=== PATIENT | female | born 1955 | race Caucasian/White ===

== ENCOUNTER 2017-01-22 21:13 | Emergency (ER) | payer BC, OTHER ==
--- NOTE | 2017-01-22 23:12 | ED ORDER SUMMARY ---
..... Patient: GIANNI NORMAN OrderSheet [facility] VisitID: [id number] [address] [place] [address] 61y, F Registration Date/Time: 01/22/2017 ORDER SHEET Weight: 125.0 kg Allergies: Codeine, Cillins GENERAL ORDERS: Forearm Right Urgent (22:38 01/22/2017 Connie Salguero verbal order read back to Inez Acosta) ([facility] 22:41 [facility] Tech) (22:55 Glenna) MEDICATION ORDERS: IV FLUIDS: ORDER SHEET NOTES: [Electronically signed by Diego Blanco R.N. (01:51 01/23/2017)] [Electronically signed by Jose Chisholm Dr. (10:17 01/23/2017)] [Electronically locked/signed by Diego Blanco R.N. (01:51 01/23/2017)]
--- NOTE | 2017-01-22 23:12 | ED ORDER SUMMARY ---
..... Patient: GIANNI NORMAN OrderSheet [facility] VisitID: [id number] [address] [place] [address] 61y, F Registration Date/Time: 01/22/2017 ORDER SHEET Weight: 125.0 kg Allergies: Codeine, Cillins GENERAL ORDERS: Forearm Right Urgent (22:38 01/22/2017 Connie Salguero verbal order read back to Inez Acosta) ([facility] 22:41 [facility] Tech) (22:55 Glenna) MEDICATION ORDERS: IV FLUIDS: ORDER SHEET NOTES: [Electronically signed by Diego Blanco R.N. (01:51 01/23/2017)] [Electronically signed by Jose Chisholm Dr. (10:17 01/23/2017)] [Electronically locked/signed by Diego Blanco R.N. (01:51 01/23/2017)]
--- NOTE | 2017-01-22 23:12 | ED NURSING NOTES ---
Clinical Report - Nurses [facility] [address] [place] [address] 01/22/2017 21:17 Patient: GIANNI NORMAN TRIAGE Triage time 2120. Acuity: LEVEL 3. Chief Complaint: INJURY TO THE RIGHT FOREARM. Alert. ALEXANDRE COMA SCORE: [place] Coma Scale: 15- eyes open spontaneously (4); best verbal response- oriented x 4 (5); best motor response- obeys commands (6). --00:17 Diego Blanco R.N. 00:03 01/23/17. BP: 158/74. HR: 66. RR: 16. O2 saturation: 99% on room air. Temp: 98.6 F. Pain level now: 610. Additional comments: R forearm pain. --00:17 Diego Blanco R.N. Weight: 125 kg. Height/Length: 65 inches. BMI: 45.9. --21:40 Diego Blanco R.N. Medications Hydrochlorothiazide Oral. --23:40 Diego Blanco R.N. Amlodipine Besy-Benazepril HCl Oral. --23:42 Diego Blanco R.N. Atenolol Oral, daily. --23:42 Diego Blanco R.N. The following entry was struck by Diego Blanco R.N., 23:38 (01/22/17) Reason - wrong patient. <<STRICKEN ENTRY-- Sertraline HCl Oral 150 mg, daily. --21:45 Diego Blanco R.N. --END STRIKE>> The following entry was struck by Diego Blanco R.N., 23:38 (01/22/17) Reason - wrong patient. <<STRICKEN ENTRY-- Methadone HCl Oral 110 mg, daily. --21:46 Diego Blanco R.N. --END STRIKE>> The following entry was struck by Diego Blanco R.N., 23:38 (01/22/17) Reason - wrong patient. <<STRICKEN ENTRY-- Levothyroxine Sodium Oral 150 mcg, daily. --21:31 Diego Blanco R.N. --END STRIKE>> The following entry was struck by Diego Blanco R.N., 23:38 (01/22/17) Reason - wrong patient. <<STRICKEN ENTRY-- LamoTRIgine ER Oral (Tablet Extended Release 24 Hour 200 mg) 1 tablet, daily. --21:44 Diego Blanco R.N. --END STRIKE>> The following entry was struck and corrected by Diego Blanco R.N., 21:46 (01/22/17) Reason for correction - other(correction). <<STRICKEN ENTRY-- LamoTRIgine ER Oral (Tablet Extended Release 24 Hour 200 mg) 1 tablet, daily. --21:44 Diego Blanco R.N. --END STRIKE>>. Medication/allergy information source: the patient. --00:17 Diego Blanco R.N. Allergies Codeine. Definite Moderate (Hallucinations) --23:40 Diego Blanco R.N. Cillins. Definite Moderate(hives, itching) --23:41 Diego Blanco R.N. The following entry was struck by Diego Blanco R.N., 23:39 (01/22/17) Reason - wrong patient. <<STRICKEN ENTRY-- Sulfa Antibiotics. --21:43 Diego Blanco R.N. --END STRIKE>> The following entry was struck by Diego Blanco R.N., 23:38 (01/22/17) Reason - wrong patient. <<STRICKEN ENTRY-- Compazine. --21:43 Diego Blanco R.N. --END STRIKE>> The following entry was struck by Diego Blanco R.N., 23:38 (01/22/17) Reason - wrong patient. <<[facility]-- Ceclor. --21:43 Diego Blanco R.N. --END STRIKE>>. History Arrived by private vehicle. Historian: patient. Unaccompanied. ( (R) forearm pain after having a GLF. Present with a larger lump (hematoma ) on the lateral side of her right forearm.). This occurred just prior to arrival. Occurred at home. Mechanism of injury: fell. ( (R) forearm pain). Treatment SERVICER TRAVEL TRAILERS: None. PAST MEDICAL HX: Hypertension. Heart disease. Tetanus status: unknown. Immunizations: status is unknown. The patient has had a hysterectomy. SOCIAL HX: Never smoker. No alcohol use or drug use. No infectious disease exposure. ABUSE ASSESSMENT: No report of abuse. FALL RISK ASSESSMENT: Fall risk assessment completed. No fall risk identified. NUTRITIONAL RISK ASSESSMENT: The nutritional risk assessment revealed no deficiencies. FUNCTIONAL ASSESSMENT: Functional assessment: no impairments noted. LEARNING NEEDS ASSESSMENT: The learning needs assessment revealed no barriers. --00:17 Diego Blanco R.N. PROBLEMS: Coronary Artery Disease. --23:48 Diego Blanco R.N. Uterine Cancer. --00:09 Diego Blanco R.N. The following entry was modified by Diego Blanco R.N., 23:48 Reason - wrong patient <<STRICKEN ENTRY-- Hypothyroidism. --23:46 Diego Blanco R.N. --END STRIKE>> The following entry was modified by Diego Blanco R.N., 00:09 <<STRICKEN ENTRY-- Hypertension. --23:47 Diego Blanco R.N. --END STRIKE>>. ADDITIONAL SURGERIES: Hysterectomy. --23:48 Diego Blanco R.N. The following entry was struck by Diego Blanco R.N., 23:48 <<STRICKEN ENTRY-- Adenoidectomy. --21:33 Diego Blanco R.N. --END STRIKE>> The following entry was struck by Diego Blanco R.N., 23:48 <<STRICKEN ENTRY-- Back Surgery. --21:33 Diego Blanco R.N. --END STRIKE>> The following entry was struck by Diego Blanco R.N., 23:48 <<STRICKEN ENTRY-- Hasimoto's thyroid. --21:37 Diego Blanco R.N. --END STRIKE>> The following entry was struck by Diego Blanco R.N., 23:48 <<STRICKEN ENTRY-- Sinus Surgery. --21:33 Diego Blnaco R.N. --END STRIKE>> The following entry was struck by Diego Blanco R.N., 23:48 <<ERICKA ENTRY-- Tonsillectomy. --21:33 Diego Blanco R.N. --END STRIKE>>. Interventions ID band on patient. To treatment room. --00:17 Diego Blanco R.N. PHYSICAL ASSESSMENT <<ERICKA ENTRY-- Ambulatory to room. GENERAL / NEURO / PSYCH: Alert. Oriented X 4. HEENT: Mucous membranes are pink. CVS: Cardiac rhythm: sinus tachycardia. Capillary refill less than 2 seconds. Pulses within normal limits. GI / : ( slightly nausea). SKIN: Skin is intact, warm and dry. No skin rash. --21:55 Diego Blanco R.N. --END STRIKE>> Correction --00:17 Diego Blanco R.N. 21:45. Ambulatory to room. GENERAL / NEURO / PSYCH: Oriented X 4. Alert. EXTREMITIES: Capillary refill is less than 2 seconds in the extremities. Extremity pulses are within normal limits. Extremities exhibit normal ROM. Neuro-vascular status intact to the extremity. Right forearm: tenderness and swelling. SKIN: Skin intact. Skin is warm and dry. ( 5 cm hematoma along the lateral side of the RFA). --00:19 Diego Blanco R.N. NURSING PROGRESS NOTES Patient gowned. Reassurance given. Patient identifiers checked. Call light placed in reach. Side rails up. Bed placed in lowest position. Brakes of bed on. Patient ready for evaluation- chart flagged and ED physician notified. --21:56 Diego Blanco R.N. <<ERICKA ENTRY-- ( Retail Client Manager in room doing procedure). --22:44 Diego Blanco R.N. --END STRIKE>> Charted On Wrong Patient --00:19 Diego Blanco R.N. <<ERICKA ENTRY-- 22:46 01/22/17. BP: 133/75. HR: 80. RR: 16. O2 saturation: 98% on room air. Pain level now: 5/10. Additional comments: (R) Foot pain. --22:48 Diego Blanco R.N. --END STRIKE>> Charted on wrong patient. --00:20 Diego Blanco R.N. DISPOSITION / DISCHARGE Departure time: 2330. --00:22 Diego Blanco R.N. 23:20 01/22/17. BP: 166/66. HR: 51. RR: 16. O2 saturation: 99% on room air. Temp: 98.4 F. --00:24 Diego Blanco R.N. 23:30. Condition at departure: improved. No learning barriers present. Discharge instructions provided and reviewed with the patient. Reviewed medication(s) (prescription given to pt). Treatments reviewed (apply an ice pack for 20 minutes to the affected intermittently). Reviewed referral to family practice for followup. Patient verbalized understanding. Written instructions provided in Persian. The patient was discharged by the physician. She was discharged home and accompanied by family. She left the Emergency Department ambulatory and via private vehicle. Family member driving. --00:30 Diego Blanco R.N. 23:20 01/22/17. Pain level now: 09/30. Additional comments: R forearm pain. --01:51 Diego Blanco R.N. Locked/Released at 01/23/2017 1:51 by Diego Blanco R.N.
--- NOTE | 2017-01-22 23:12 | ED CLINICAL REPORT ---
Clinical Report - Physicians/Mid Levels [facility] [address] [place] [address] 01/22/2017 21:17 Patient: GIANNI NORMAN Time Seen: 21:31; initial patient contact. Arrived- By private vehicle. Historian- patient. HISTORY OF PRESENT ILLNESS Chief Complaint: Injury to the right elbow. The injury happened just prior to arrival. Occurred at home. Fell and landed on a wood surface; tripped. This was not an incised wound. Patient is experiencing mild pain. Patient denies injury to the head or neck. REVIEW OF SYSTEMS The patient has had swelling. No tingling, numbness, weakness, suspected foreign body or skin laceration. All systems otherwise negative, except as recorded above. PAST HISTORY Coronary Artery Disease. Uterine Cancer. Medications: Atenolol Oral, daily. Amlodipine Besy-Benazepril HCl Oral. Hydrochlorothiazide Oral. Allergies: Cillins. Definite Moderate(hives, itching) Codeine. Definite Moderate (Hallucinations). SOCIAL HISTORY Never smoker. No alcohol use or drug use. ADDITIONAL NOTES The nursing notes have been reviewed. PHYSICAL EXAM Vital Signs: 01/22/2017 23:20 BP: 166/66. HR: 51. RR: 16. O2 saturation: 99%. Temp: 98.4 F. Have been reviewed. Hypertensive. Bradycardic. Respiratory rate normal. Temperature normal. Oxygen saturation normal. Appearance: Alert. Oriented X3. No acute distress. Skin: Skin intact. Skin warm and dry. Normal skin color. Extremities: Right elbow: mild erythema, tenderness and swelling and medium sized ecchymosis. Neurovascular intact distally. No laceration or deformity. No limitation in ROM. Extremities otherwise negative. Neuro, Vascular and Tendons: Vascular status intact. Sensation intact. Motor intact. Tendon function intact. Neuro: Oriented X 3. No motor deficit. No sensory deficit. LABS, X-RAYS, AND EKG Rt Elbow X-ray: No fracture. Normal alignment. No bony lesion. Views: 2 view elbow series. Technique: good. The X-rays were independently viewed by me and interpreted contemporaneously by me. Prior films were not available for comparison. Interpretation time: 23:12. PROGRESS AND PROCEDURES Disposition: Discharged home in good and improved condition. Condition: good. CLINICAL IMPRESSION Single contusion with soft tissue hematoma to the right forearm. INSTRUCTIONS Your Current Medications: Prescription Medications: Hydrocodone/APAP 5mg / 325mg: take 1 orally every 6 hours as needed for pain. Dispense ten (10). No refill. Follow-up: Follow up with your doctor in about two days. Call for an appointment. Blood pressure screening was not performed during this visit because the patient has an active diagnosis of hypertension. (Electronically signed by Jose Chisholm Dr. 01/23/2017 10:17)
--- NOTE | 2017-01-22 23:12 | ED NURSING NOTES ---
Clinical Report - Nurses [facility] [address] [place] [address] 01/22/2017 21:17 Patient: GIANNI NORMAN TRIAGE Triage time 2120. Acuity: LEVEL 3. Chief Complaint: INJURY TO THE RIGHT FOREARM. Alert. ALEXANDRE COMA SCORE: [place] Coma Scale: 15- eyes open spontaneously (4); best verbal response- oriented x 4 (5); best motor response- obeys commands (6). --00:17 Diego Blanco R.N. 00:03 01/23/17. BP: 158/74. HR: 66. RR: 16. O2 saturation: 99% on room air. Temp: 98.6 F. Pain level now: 610. Additional comments: R forearm pain. --00:17 Diego Blanco R.N. Weight: 125 kg. Height/Length: 65 inches. BMI: 45.9. --21:40 Diego Blanco R.N. Medications Hydrochlorothiazide Oral. --23:40 Diego Blanco R.N. Amlodipine Besy-Benazepril HCl Oral. --23:42 Diego Blanco R.N. Atenolol Oral, daily. --23:42 Diego Blanco R.N. The following entry was struck by Diego Blanco R.N., 23:38 (01/22/17) Reason - wrong patient. <<STRICKEN ENTRY-- Sertraline HCl Oral 150 mg, daily. --21:45 Diego Blanco R.N. --END STRIKE>> The following entry was struck by Diego Blacno R.N., 23:38 (01/22/17) Reason - wrong patient. <<STRICKEN ENTRY-- Methadone HCl Oral 110 mg, daily. --21:46 Diego Blanco R.N. --END STRIKE>> The following entry was struck by Diego Blanco R.N., 23:38 (01/22/17) Reason - wrong patient. <<STRICKEN ENTRY-- Levothyroxine Sodium Oral 150 mcg, daily. --21:31 Diego Blanco R.N. --END STRIKE>> The following entry was struck by Diego Blanco R.N., 23:38 (01/22/17) Reason - wrong patient. <<STRICKEN ENTRY-- LamoTRIgine ER Oral (Tablet Extended Release 24 Hour 200 mg) 1 tablet, daily. --21:44 Diego Blanco R.N. --END STRIKE>> The following entry was struck and corrected by Diego Blanco R.N., 21:46 (01/22/17) Reason for correction - other(correction). <<STRICKEN ENTRY-- LamoTRIgine ER Oral (Tablet Extended Release 24 Hour 200 mg) 1 tablet, daily. --21:44 Diego Blanco R.N. --END STRIKE>>. Medication/allergy information source: the patient. --00:17 Diego Blanco R.N. Allergies Codeine. Definite Moderate (Hallucinations) --23:40 Diego Blanco R.N. Cillins. Definite Moderate(hives, itching) --23:41 Diego Blanco R.N. The following entry was struck by Diego Blanco R.N., 23:39 (01/22/17) Reason - wrong patient. <<STRICKEN ENTRY-- Sulfa Antibiotics. --21:43 Diego Blanco R.N. --END STRIKE>> The following entry was struck by Diego Blanco R.N., 23:38 (01/22/17) Reason - wrong patient. <<STRICKEN ENTRY-- Compazine. --21:43 Diego Blanco R.N. --END STRIKE>> The following entry was struck by Diego Blanco R.N., 23:38 (01/22/17) Reason - wrong patient. <<[facility]-- Ceclor. --21:43 Diego Blanco R.N. --END STRIKE>>. History Arrived by private vehicle. Historian: patient. Unaccompanied. ( (R) forearm pain after having a GLF. Present with a larger lump (hematoma ) on the lateral side of her right forearm.). This occurred just prior to arrival. Occurred at home. Mechanism of injury: fell. ( (R) forearm pain). Treatment SILO PAINTER: None. PAST MEDICAL HX: Hypertension. Heart disease. Tetanus status: unknown. Immunizations: status is unknown. The patient has had a hysterectomy. SOCIAL HX: Never smoker. No alcohol use or drug use. No infectious disease exposure. ABUSE ASSESSMENT: No report of abuse. FALL RISK ASSESSMENT: Fall risk assessment completed. No fall risk identified. NUTRITIONAL RISK ASSESSMENT: The nutritional risk assessment revealed no deficiencies. FUNCTIONAL ASSESSMENT: Functional assessment: no impairments noted. LEARNING NEEDS ASSESSMENT: The learning needs assessment revealed no barriers. --00:17 Diego Blanco R.N. PROBLEMS: Coronary Artery Disease. --23:48 Diego Blanco R.N. Uterine Cancer. --00:09 Diego Blanco R.N. The following entry was modified by Diego Blanco R.N., 23:48 Reason - wrong patient <<STRICKEN ENTRY-- Hypothyroidism. --23:46 Diego Blanco R.N. --END STRIKE>> The following entry was modified by Diego Blanco R.N., 00:09 <<STRICKEN ENTRY-- Hypertension. --23:47 Diego Blanco R.N. --END STRIKE>>. ADDITIONAL SURGERIES: Hysterectomy. --23:48 Diego Blanco R.N. The following entry was struck by Diego Blanco R.N., 23:48 <<STRICKEN ENTRY-- Adenoidectomy. --21:33 Diego Blanco R.N. --END STRIKE>> The following entry was struck by Diego Blanco R.N., 23:48 <<STRICKEN ENTRY-- Back Surgery. --21:33 Diego Blanco R.N. --END STRIKE>> The following entry was struck by Diego Blanco R.N., 23:48 <<STRICKEN ENTRY-- Hasimoto's thyroid. --21:37 Diego Blanco R.N. --END STRIKE>> The following entry was struck by Diego Blanco R.N., 23:48 <<STRICKEN ENTRY-- Sinus Surgery. --21:33 Diego Blanco R.N. --END STRIKE>> The following entry was struck by Diego Blanco R.N., 23:48 <<ERICKA ENTRY-- Tonsillectomy. --21:33 Diego Blanco R.N. --END STRIKE>>. Interventions ID band on patient. To treatment room. --00:17 Diego Blanco R.N. PHYSICAL ASSESSMENT <<ERICKA ENTRY-- Ambulatory to room. GENERAL / NEURO / PSYCH: Alert. Oriented X 4. HEENT: Mucous membranes are pink. CVS: Cardiac rhythm: sinus tachycardia. Capillary refill less than 2 seconds. Pulses within normal limits. GI / : ( slightly nausea). SKIN: Skin is intact, warm and dry. No skin rash. --21:55 Diego Blanco R.N. --END STRIKE>> Correction --00:17 Diego Blanco R.N. 21:45. Ambulatory to room. GENERAL / NEURO / PSYCH: Oriented X 4. Alert. EXTREMITIES: Capillary refill is less than 2 seconds in the extremities. Extremity pulses are within normal limits. Extremities exhibit normal ROM. Neuro-vascular status intact to the extremity. Right forearm: tenderness and swelling. SKIN: Skin intact. Skin is warm and dry. ( 5 cm hematoma along the lateral side of the RFA). --00:19 Diego Blanco R.N. NURSING PROGRESS NOTES Patient gowned. Reassurance given. Patient identifiers checked. Call light placed in reach. Side rails up. Bed placed in lowest position. Brakes of bed on. Patient ready for evaluation- chart flagged and ED physician notified. --21:56 Diego Blanco R.N. <<ERICKA ENTRY-- ( Marketing Support Specialist in room doing procedure). --22:44 Diego Blanco R.N. --END STRIKE>> Charted On Wrong Patient --00:19 Diego Blanco R.N. <<ERICKA ENTRY-- 22:46 01/22/17. BP: 133/75. HR: 80. RR: 16. O2 saturation: 98% on room air. Pain level now: 5/10. Additional comments: (R) Foot pain. --22:48 Diego Blanco R.N. --END STRIKE>> Charted on wrong patient. --00:20 Diego Blanco R.N. DISPOSITION / DISCHARGE Departure time: 2330. --00:22 Diego Blanco R.N. 23:20 01/22/17. BP: 166/66. HR: 51. RR: 16. O2 saturation: 99% on room air. Temp: 98.4 F. --00:24 Diego Blanco R.N. 23:30. Condition at departure: improved. No learning barriers present. Discharge instructions provided and reviewed with the patient. Reviewed medication(s) (prescription given to pt). Treatments reviewed (apply an ice pack for 20 minutes to the affected intermittently). Reviewed referral to family practice for followup. Patient verbalized understanding. Written instructions provided in [place]. The patient was discharged by the physician. She was discharged home and accompanied by family. She left the Emergency Department ambulatory and via private vehicle. Family member driving. --00:30 Diego Blanco R.N. 23:20 01/22/17. Pain level now: 09/30. Additional comments: R forearm pain. --01:51 Diego Blanco R.N. Locked/Released at 01/23/2017 1:51 by Diego Blanco R.N.
--- NOTE | 2017-01-22 23:12 | ED CLINICAL REPORT ---
Clinical Report - Physicians/Mid Levels [facility] [address] [place] [address] 01/22/2017 21:17 Patient: GIANNI NORMAN Time Seen: 21:31; initial patient contact. Arrived- By private vehicle. Historian- patient. HISTORY OF PRESENT ILLNESS Chief Complaint: Injury to the right elbow. The injury happened just prior to arrival. Occurred at home. Fell and landed on a wood surface; tripped. This was not an incised wound. Patient is experiencing mild pain. Patient denies injury to the head or neck. REVIEW OF SYSTEMS The patient has had swelling. No tingling, numbness, weakness, suspected foreign body or skin laceration. All systems otherwise negative, except as recorded above. PAST HISTORY Coronary Artery Disease. Uterine Cancer. Medications: Atenolol Oral, daily. Amlodipine Besy-Benazepril HCl Oral. Hydrochlorothiazide Oral. Allergies: Cillins. Definite Moderate(hives, itching) Codeine. Definite Moderate (Hallucinations). SOCIAL HISTORY Never smoker. No alcohol use or drug use. ADDITIONAL NOTES The nursing notes have been reviewed. PHYSICAL EXAM Vital Signs: 01/22/2017 23:20 BP: 166/66. HR: 51. RR: 16. O2 saturation: 99%. Temp: 98.4 F. Have been reviewed. Hypertensive. Bradycardic. Respiratory rate normal. Temperature normal. Oxygen saturation normal. Appearance: Alert. Oriented X3. No acute distress. Skin: Skin intact. Skin warm and dry. Normal skin color. Extremities: Right elbow: mild erythema, tenderness and swelling and medium sized ecchymosis. Neurovascular intact distally. No laceration or deformity. No limitation in ROM. Extremities otherwise negative. Neuro, Vascular and Tendons: Vascular status intact. Sensation intact. Motor intact. Tendon function intact. Neuro: Oriented X 3. No motor deficit. No sensory deficit. LABS, X-RAYS, AND EKG Rt Elbow X-ray: No fracture. Normal alignment. No bony lesion. Views: 2 view elbow series. Technique: good. The X-rays were independently viewed by me and interpreted contemporaneously by me. Prior films were not available for comparison. Interpretation time: 23:12. PROGRESS AND PROCEDURES Disposition: Discharged home in good and improved condition. Condition: good. CLINICAL IMPRESSION Single contusion with soft tissue hematoma to the right forearm. INSTRUCTIONS Your Current Medications: Prescription Medications: Hydrocodone/APAP 5mg / 325mg: take 1 orally every 6 hours as needed for pain. Dispense ten (10). No refill. Follow-up: Follow up with your doctor in about two days. Call for an appointment. Blood pressure screening was not performed during this visit because the patient has an active diagnosis of hypertension. (Electronically signed by Jose Chisholm Dr. 01/23/2017 10:17)
--- NOTE | 2017-01-22 23:23 | DIAGNOSTIC IMAGING REPORT ---
PROCEDURE: XR FOREARM - RIGHT INDICATION: TRAUMA/INJURY TECHNIQUE: Two views of the right forearm COMPARISON: None. FINDINGS: Normal mineralization. No fractures. Normal osseous alignment. No suspicious soft-tissue calcification or radiodense foreign bodies. IMPRESSION: 1. Intact right forearm.
--- NOTE | 2017-01-23 10:17 | ED DISCHARGE INSTRUCTIONS ---
Patient: GIANNI NORMAN General Instructions [facility] VisitID: [id number] [place] [address] 61y, F Registration Date/Time: 01/22/2017 Single contusion with soft tissue hematoma to the right forearm. INSTRUCTIONS Your Current Medications: Prescription Medications: Hydrocodone/APAP 5mg / 325mg: take 1 orally every 6 hours as needed for pain. Dispense ten (10). No refill. Follow-up: Follow up with your doctor in about two days. Call for an appointment. Blood pressure screening was not performed during this visit because the patient has an active diagnosis of hypertension. ADDITIONAL INFORMATION Contusion,Soft Tissue You have a CONTUSION, which is a bruise with swelling and some bleeding under the skin. There are no broken bones. This injury takes a few days to a few weeks to heal. Home Care: 1) Keep the injured part elevated to reduce pain and swelling. This is especially important during the first 48 hours. 2) Make an ice pack (ice cubes in a plastic bag, wrapped in a towel) and apply for 20 minutes every 1-2 hours the first day. Continue this 3-4 times a day until the pain and swelling goes away. 3) You may use acetaminophen (Tylenol) or ibuprofen (Motrin, Advil) to control pain, unless another pain medicine was prescribed. [ NOTE : If you have chronic liver or kidney disease or ever had a stomach ulcer or GI bleeding, talk with your doctor before using these medicines.] Follow Up with your doctor or this facility if you are not improving within the next THREE days. [NOTE: If X-rays were taken, they will be reviewed by a radiologist. You will be notified of any new findings that may affect your care.] Get Prompt Medical Attention if any of the following occur: -- Pain or swelling increases -- Injured arm or leg becomes cold, blue, numb or tingly -- Redness, warmth or drainage from the skin Hydrocodone Bitartrate, Acetaminophen Oral tablet What is this medicine? ACETAMINOPHEN; HYDROCODONE (a set a SARAH susanna fen; janny droe KOE done) is a pain reliever. It is used to treat mild to moderate pain. How should I use this medicine? Take this medicine by mouth. Swallow it with a full glass of water. Follow the directions on the prescription label. If the medicine upsets your stomach, take the medicine with food or milk. Do not take more than you are told to take. Talk to your sales store checker regarding the use of this medicine in children. This medicine is not approved for use in children. What side effects may I notice from receiving this medicine? Side effects that you should report to your doctor or health post acute care registered nurse as soon as possible: allergic reactions like skin rash, itching or hives, swelling of the face, lips, or tongue breathing problems confusion feeling faint or lightheaded, falls stomach pain yellowing of the eyes or skin Side effects that usually do not require medical attention (report to your doctor or health post acute care registered nurse if they continue or are bothersome): nausea, vomiting stomach upset What may interact with this medicine? alcohol antihistamines isoniazid medicines for depression, anxiety, or psychotic disturbances medicines for sleep muscle relaxants naltrexone narcotic medicines (opiates) for pain phenobarbital ritonavir tramadol What if I miss a dose? If you miss a dose, take it as soon as you can. If it is almost time for your next dose, take only that dose. Do not take double or extra doses. Where should I keep my medicine? Keep out of the reach of children. This medicine can be abused. Keep your medicine in a safe place to protect it from theft. Do not share this medicine with anyone. Selling or giving away this medicine is dangerous and against the law. Store at room temperature between 15 and 30 degrees C (59 and 86 degrees F). Protect from light. Keep container tightly closed. Throw away any unused medicine after the expiration date. Discard unused medicine and used packaging carefully. Pets and children can be harmed if they find used or lost packages. What should I tell my health care provider before I take this medicine? They need to know if you have any of these conditions: brain tumor Crohn's disease, inflammatory bowel disease, or ulcerative colitis drink more than 3 alcohol-containing drinks per day drug abuse or addiction head injury heart or circulation problems kidney disease or problems going to the bathroom liver disease lung disease, asthma, or breathing problems an unusual or allergic reaction to acetaminophen, hydrocodone, other opioid analgesics, other medicines, foods, dyes, or preservatives or trying to get breast-feeding What should I watch for while using this medicine? Tell your doctor or health post acute care registered nurse if your pain does not go away, if it gets worse, or if you have new or a different type of pain. You may develop tolerance to the medicine. Tolerance means that you will need a higher dose of the medicine for pain relief. Tolerance is normal and is expected if you take the medicine for a long time. Do not suddenly stop taking your medicine because you may develop a severe reaction. Your body becomes used to the medicine. This does NOT mean you are addicted. Addiction is a behavior related to getting and using a drug for a non-medical reason. If you have pain, you have a medical reason to take pain medicine. Your doctor will tell you how much medicine to take. If your doctor wants you to stop the medicine, the dose will be slowly lowered over time to avoid any side effects. You may get drowsy or dizzy when you first start taking the medicine or change doses. Do not drive, use machinery, or do anything that may be dangerous until you know how the medicine affects you. Stand or sit up slowly. There are different types of narcotic medicines (opiates) for pain. If you take more than one type at the same time, you may have more side effects. Give your health care provider a list of all medicines you use. Your doctor will tell you how much medicine to take. Do not take more medicine than directed. Call emergency for help if you have problems breathing. The medicine will cause constipation. Try to have a bowel movement at least every 2 to 3 days. If you do not have a bowel movement for 3 days, call your doctor or health post acute care registered nurse. Too much acetaminophen can be very dangerous. Do not take Tylenol (acetaminophen) or medicines that contain acetaminophen with this medicine. Many non-prescription medicines contain acetaminophen. Always read the labels carefully. You have been given the following additional information: Contusion, Soft Tissue Hydrocodone Bitartrate, Acetaminophen Oral tablet (Electronically signed by Jose Chisholm Dr. 01/23/2017 10:17)
--- NOTE | 2017-01-23 10:17 | ED MED RECONCILIATION SUMMARY ---
Patient: GIANNI NORMAN Medication Reconciliation Report [facility] VisitID: [id number] [address] [place] [address] 61y, F Registration Date/Time: 01/22/2017 Weight: 125.0 kg Height/Length: 65 in. BMI: 45.9 ALLERGIES: Cillins, Codeine The patient's Home Medications are listed below: THE FOLLOWING MEDICATIONS NEED TO BE RECONCILED: Amlodipine Besy-Benazepril HCl Oral Atenolol Oral, daily Hydrochlorothiazide Oral The source(s) of the original Home Medication information: patient The following Medications were given to the patient in the Emergency Department: None. The following Medications were prescribed to the patient: Hydrocodone/APAP 5mg / 325mg: take 1 orally every 6 hours as needed for pain. Dispense ten (10). No refill. -- Jose Chisholm Dr.
--- NOTE | 2017-01-23 10:17 | ED MAR SUMMARY ---
..... Medication Administration Record [facility] [address] [place], [place] [id number] Patient: GIANNI NORMAN Visit ID: [id number] 61y, F Weight: 125.0 kg Height/Length: 65 in BMI: 45.9 ALLERGIES: Cillins, Codeine
--- NOTE | 2017-01-23 10:17 | ED MED RECONCILIATION SUMMARY ---
Patient: GIANNI NORMAN Medication Reconciliation Report [facility] VisitID: [id number] [address] [place] [address] 61y, F Registration Date/Time: 01/22/2017 Weight: 125.0 kg Height/Length: 65 in. BMI: 45.9 ALLERGIES: Cillins, Codeine The patient's Home Medications are listed below: THE FOLLOWING MEDICATIONS NEED TO BE RECONCILED: Amlodipine Besy-Benazepril HCl Oral Atenolol Oral, daily Hydrochlorothiazide Oral The source(s) of the original Home Medication information: patient The following Medications were given to the patient in the Emergency Department: None. The following Medications were prescribed to the patient: Hydrocodone/APAP 5mg / 325mg: take 1 orally every 6 hours as needed for pain. Dispense ten (10). No refill. -- Jose Chisholm Dr.
--- NOTE | 2017-01-23 10:17 | ED DISCHARGE INSTRUCTIONS ---
Patient: GIANNI NORMAN General Instructions [facility] VisitID: [id number] [place] [address] 61y, F Registration Date/Time: 01/22/2017 Single contusion with soft tissue hematoma to the right forearm. INSTRUCTIONS Your Current Medications: Prescription Medications: Hydrocodone/APAP 5mg / 325mg: take 1 orally every 6 hours as needed for pain. Dispense ten (10). No refill. Follow-up: Follow up with your doctor in about two days. Call for an appointment. Blood pressure screening was not performed during this visit because the patient has an active diagnosis of hypertension. ADDITIONAL INFORMATION Contusion,Soft Tissue You have a CONTUSION, which is a bruise with swelling and some bleeding under the skin. There are no broken bones. This injury takes a few days to a few weeks to heal. Home Care: 1) Keep the injured part elevated to reduce pain and swelling. This is especially important during the first 48 hours. 2) Make an ice pack (ice cubes in a plastic bag, wrapped in a towel) and apply for 20 minutes every 1-2 hours the first day. Continue this 3-4 times a day until the pain and swelling goes away. 3) You may use acetaminophen (Tylenol) or ibuprofen (Motrin, Advil) to control pain, unless another pain medicine was prescribed. [ NOTE : If you have chronic liver or kidney disease or ever had a stomach ulcer or GI bleeding, talk with your doctor before using these medicines.] Follow Up with your doctor or this facility if you are not improving within the next THREE days. [NOTE: If X-rays were taken, they will be reviewed by a radiologist. You will be notified of any new findings that may affect your care.] Get Prompt Medical Attention if any of the following occur: -- Pain or swelling increases -- Injured arm or leg becomes cold, blue, numb or tingly -- Redness, warmth or drainage from the skin Hydrocodone Bitartrate, Acetaminophen Oral tablet What is this medicine? ACETAMINOPHEN; HYDROCODONE (a set a SARAH susanna fen; janny droe KOE done) is a pain reliever. It is used to treat mild to moderate pain. How should I use this medicine? Take this medicine by mouth. Swallow it with a full glass of water. Follow the directions on the prescription label. If the medicine upsets your stomach, take the medicine with food or milk. Do not take more than you are told to take. Talk to your catia designer regarding the use of this medicine in children. This medicine is not approved for use in children. What side effects may I notice from receiving this medicine? Side effects that you should report to your doctor or health critical care transport nurse as soon as possible: allergic reactions like skin rash, itching or hives, swelling of the face, lips, or tongue breathing problems confusion feeling faint or lightheaded, falls stomach pain yellowing of the eyes or skin Side effects that usually do not require medical attention (report to your doctor or health critical care transport nurse if they continue or are bothersome): nausea, vomiting stomach upset What may interact with this medicine? alcohol antihistamines isoniazid medicines for depression, anxiety, or psychotic disturbances medicines for sleep muscle relaxants naltrexone narcotic medicines (opiates) for pain phenobarbital ritonavir tramadol What if I miss a dose? If you miss a dose, take it as soon as you can. If it is almost time for your next dose, take only that dose. Do not take double or extra doses. Where should I keep my medicine? Keep out of the reach of children. This medicine can be abused. Keep your medicine in a safe place to protect it from theft. Do not share this medicine with anyone. Selling or giving away this medicine is dangerous and against the law. Store at room temperature between 15 and 30 degrees C (59 and 86 degrees F). Protect from light. Keep container tightly closed. Throw away any unused medicine after the expiration date. Discard unused medicine and used packaging carefully. Pets and children can be harmed if they find used or lost packages. What should I tell my health care provider before I take this medicine? They need to know if you have any of these conditions: brain tumor Crohn's disease, inflammatory bowel disease, or ulcerative colitis drink more than 3 alcohol-containing drinks per day drug abuse or addiction head injury heart or circulation problems kidney disease or problems going to the bathroom liver disease lung disease, asthma, or breathing problems an unusual or allergic reaction to acetaminophen, hydrocodone, other opioid analgesics, other medicines, foods, dyes, or preservatives or trying to get breast-feeding What should I watch for while using this medicine? Tell your doctor or health critical care transport nurse if your pain does not go away, if it gets worse, or if you have new or a different type of pain. You may develop tolerance to the medicine. Tolerance means that you will need a higher dose of the medicine for pain relief. Tolerance is normal and is expected if you take the medicine for a long time. Do not suddenly stop taking your medicine because you may develop a severe reaction. Your body becomes used to the medicine. This does NOT mean you are addicted. Addiction is a behavior related to getting and using a drug for a non-medical reason. If you have pain, you have a medical reason to take pain medicine. Your doctor will tell you how much medicine to take. If your doctor wants you to stop the medicine, the dose will be slowly lowered over time to avoid any side effects. You may get drowsy or dizzy when you first start taking the medicine or change doses. Do not drive, use machinery, or do anything that may be dangerous until you know how the medicine affects you. Stand or sit up slowly. There are different types of narcotic medicines (opiates) for pain. If you take more than one type at the same time, you may have more side effects. Give your health care provider a list of all medicines you use. Your doctor will tell you how much medicine to take. Do not take more medicine than directed. Call emergency for help if you have problems breathing. The medicine will cause constipation. Try to have a bowel movement at least every 2 to 3 days. If you do not have a bowel movement for 3 days, call your doctor or health critical care transport nurse. Too much acetaminophen can be very dangerous. Do not take Tylenol (acetaminophen) or medicines that contain acetaminophen with this medicine. Many non-prescription medicines contain acetaminophen. Always read the labels carefully. You have been given the following additional information: Contusion, Soft Tissue Hydrocodone Bitartrate, Acetaminophen Oral tablet (Electronically signed by Jose Chisholm Dr. 01/23/2017 10:17)
--- NOTE | 2017-01-23 10:17 | ED MAR SUMMARY ---
..... Medication Administration Record [facility] [address] [place], [place] [id number] Patient: GIANNI NORMAN Visit ID: [id number] 61y, F Weight: 125.0 kg Height/Length: 65 in BMI: 45.9 ALLERGIES: Cillins, Codeine
== END 2017-01-22 23:30 | disposition home or self-care (01) ==
LOC: ED SRH 21:13
DX: S50.11XA Contusion of right forearm, initial encounter (principal); W01.0XXA Fall on same level from slipping, tripping and stumbling without subsequent striking against object, initial encounter; Y93.9 Activity, unspecified; Y99.9 Unspecified external cause status; Y92.009 Unspecified place in unspecified non-institutional (private) residence as the place of occurrence of the external cause; I25.10 Atherosclerotic heart disease of native coronary artery without angina pectoris; Z79.899 Other long term (current) drug therapy; Z88.0 Allergy status to penicillin; Z88.5 Allergy status to narcotic agent